=== PATIENT | female | born 2000 | race Caucasian/White ===

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

== ENCOUNTER → 2023-01-22 | Day surgery (SDC) | payer OTHER ==
[~2023-01-22] MED LIST changes: +BUPIVACAINE HCL 0.5% 10ML MPF VIAL INJ ONE; -CEFAZOLIN SOD 1 GM/NS 50ML 100 ML IV ONE; +DEXAMETHASONE SOD PHOS INJ 4 MG/ML SDV ONE; -DEXAMETHASONE SOD PHOS INJ 4 MG/ML VIAL ONE; -HYDROCODONE/APAP 5MG-325MG TAB ONE; +LACTATED RINGER'S 1,000 ML ONE; +LANSOPRAZOLE30 MG PO; +LIDOCAINE 1% W/EPINEPHRINE 20 ML VIAL ONE; +POVIDONE IODINE 0.05% 0.05 % ML PO ONE; +PRILOSEC OTC20 MG PO; -ROCURONIUM BROMIDE 10 MG/ML 5ML VIAL IV ONE; -SUGAMMADEX SODIUM 200 MG/2 ML VIAL IV ONE
[2023-01-22] MEDS: HYDROMORPHONE 1MG/1ML INJ ONE ×2 (11:45→11:51)
[2023-01-22 12:18] VITALS: BP 125/77; PULSE 86; RESP 16; O2SAT 95
== END | disposition home or self-care (01) ==
LOC: OR 08:41
PROVIDERS: ATTEND Podiatrist Foot & Ankle Surgery
DX: G58.8 Other specified mononeuropathies (principal); M25.775 Osteophyte, left foot; D17.39 Benign lipomatous neoplasm of skin and subcutaneous tissue of other sites; M89.8X7 Other specified disorders of bone, ankle and foot; M79.9 Soft tissue disorder, unspecified; J45.909 Unspecified asthma, uncomplicated; E03.9 Hypothyroidism, unspecified; Z91.048 Other nonmedicinal substance allergy status; Z79.899 Other long term (current) drug therapy
CPT/HCPCS: 28080; 28104; 81025; 88304; J0690; J1100; J1170; J2001; J2405; J2704; J2710; J3010; J7121